=== PATIENT | female | born 1955 | race Caucasian/White ===

== ENCOUNTER → 2017-12-05 10:03 | Outpatient (CLI) | payer OTHER, SELFPAY ==
--- NOTE | 2017-12-05 | DI.MG.S_ITS ---
BILATERAL DIGITAL SCREENING MAMMOGRAM 3D/2D WITH CAD: 12/05/2017 Comparison is made to exams dated: 11/15/2016 mammogram, 11/12/2015 mammogram, and 10/24/2014 mammogram - [facility]. There are scattered fibroglandular elements in both breasts. Current study was also evaluated with a Computer Aided Detection (CAD) system. No significant masses, calcifications, or other findings are seen in either breast. There has been no significant interval change. IMPRESSION: NEGATIVE There is no mammographic evidence of malignancy. A 1 year screening mammogram is recommended. This exam was interpreted at Station ID: [id number]. NOTE: For mammograms, a report in lay terms will be sent to the patient. Approximately 15% of breast malignancies will not be visualized mammographically. In the management of a palpable breast mass, a negative mammogram must not discourage biopsy of a clinically suspicious lesion. Electronically Signed By: Chase olivier/meryl:12/05/2017 12:02:36 letter sent: Normal Exam ACR BI-RADS Category 1: Negative 3341F
== END ==
PROVIDERS: Visit Provider Internal Medicine
DX: Z12.31 Encounter for screening mammogram for malignant neoplasm of breast (principal)
CPT/HCPCS: 77063; 77067

== ENCOUNTER → 2018-01-23 10:15 | Outpatient (CLI) | payer OTHER, SELFPAY | PROVIDERS: PCP Internal Medicine; Visit Provider Internal Medicine | DX: M81.0 Age-related osteoporosis without current pathological fracture (principal); Z78.0 Asymptomatic menopausal state; Z82.62 Family history of osteoporosis | CPT/HCPCS: 77080 ==

== ENCOUNTER → 2018-02-28 16:13 | Outpatient (CLI) | payer OTHER, SELFPAY ==
[2018-02-28 17:50] LABS: Calcium 9.4 mg/dL (8.4-10.2)
[2018-03-02 14:01] LABS: Parathyroid Hormone Int 42 pg/mL (14-64)
== END ==
PROVIDERS: PCP Internal Medicine; Visit Provider Internal Medicine
DX: M81.0 Age-related osteoporosis without current pathological fracture (principal)
CPT/HCPCS: 36415; 82310; 83970

== ENCOUNTER → 2018-12-13 09:00 | Outpatient (CLI) | payer OTHER, SELFPAY ==
--- NOTE | 2018-12-13 | DI.MG.S_ITS ---
BILATERAL DIGITAL SCREENING MAMMOGRAM 3D/2D WITH CAD: 12/13/2018 CLINICAL: Routine screening. Comparison is made to exams dated: 12/05/2017 mammogram, 11/15/2016 mammogram, and 11/12/2015 mammogram - [facility]. There are scattered fibroglandular elements in both breasts. Current study was also evaluated with a Computer Aided Detection (CAD) system. No significant masses, calcifications, or other findings are seen in either breast. There has been no significant interval change. IMPRESSION: NEGATIVE There is no mammographic evidence of malignancy. A 1 year screening mammogram is recommended. This exam was interpreted at Station ID: [id number]. NOTE: For mammograms, a report in lay terms will be sent to the patient. Approximately 15% of breast malignancies will not be visualized mammographically. In the management of a palpable breast mass, a negative mammogram must not discourage biopsy of a clinically suspicious lesion. Electronically Signed By: Eliza tsai/meryl:12/13/2018 12:15:15 letter sent: Normal Exam ACR BI-RADS Category 1: Negative 3341F
== END ==
PROVIDERS: PCP Internal Medicine; Visit Provider Internal Medicine
DX: Z12.31 Encounter for screening mammogram for malignant neoplasm of breast (principal)
CPT/HCPCS: 77063; 77067

== ENCOUNTER → 2019-03-11 11:05 | Outpatient (CLI) | payer OTHER, SELFPAY ==
[2019-03-11 13:29] LABS: HEMOLYSIS < 15 (0-50)
[2019-03-11 13:33] LABS: Blood Urea Nitrogen 14 mg/dL (7-17); Calcium 9.9 mg/dL (8.4-10.2); Carbon Dioxide 29 mmol/L (22-32); Chloride 102 mmol/L (98-107); Cholesterol 237 mg/dL (140-199); Estimated Glomerular Filt Rate > 60.0 mL/min (>60); Glucose 84 mg/dL (80-110); HDL Cholesterol 87 mg/dL (40-60); LDL Cholesterol Calculated 134 mg/dL (<100); Potassium 5.2 mmol/L (3.4-5.1); Triglycerides 80 mg/dL (35-150)
[2019-03-11 13:57] LABS: TSH w/ Reflex to FT4 0.84 uIU/mL (0.47-4.68)
[2019-03-11 16:18] LABS: Sodium 140 mmol/L (137-145)
== END ==
PROVIDERS: PCP Internal Medicine; Visit Provider Physician Assistant
DX: E03.9 Hypothyroidism, unspecified (principal); E78.00 Pure hypercholesterolemia, unspecified
CPT/HCPCS: 36415; 80048; 80061; 84443

== ENCOUNTER → 2020-01-06 11:10 | Outpatient (CLI) | payer OTHER, SELFPAY ==
--- NOTE | 2020-01-06 11:18 | DI.MG.S_ITS ---
Patient Name: ZAIN WALSH date: 1955 Sex: F Attending Physician: Bishop Indications: Date: 01/06/2020 11:12 At the request of: JAKOB BLAKE Procedure: MM screening mammo BI BILATERAL DIGITAL SCREENING MAMMOGRAM 3D/2D WITH CAD: 01/06/2020 CLINICAL: Routine screening. Comparison is made to exams dated: 12/13/2018 mammogram, 12/05/2017 mammogram, and 11/15/2016 mammogram - [facility]. There are scattered fibroglandular elements in both breasts. Current study was also evaluated with a Computer Aided Detection (CAD) system. No significant masses, calcifications, or other findings are seen in either breast. There has been no significant interval change. IMPRESSION: NEGATIVE There is no mammographic evidence of malignancy. A 1 year screening mammogram is recommended. This exam was interpreted at Station ID: [id number]. NOTE: For mammograms, a report in lay terms will be sent to the patient. Approximately 15% of breast malignancies will not be visualized mammographically. In the management of a palpable breast mass, a negative mammogram must not discourage biopsy of a clinically suspicious lesion. Electronically Signed By: Ayad Salinas M.D., jr/meryl:01/06/2020 11:44:50 letter sent: Normal Exam ACR BI-RADS Category 1: Negative 3341F
== END ==
PROVIDERS: PCP Internal Medicine; Referring Provider Internal Medicine; Visit Provider Internal Medicine
DX: Z12.31 Encounter for screening mammogram for malignant neoplasm of breast (principal)
CPT/HCPCS: 77063; 77067

== ENCOUNTER → 2020-09-23 12:12 | Outpatient (CLI) | payer OTHER, SELFPAY ==
[2020-09-23 16:34] LABS: Vitamin D 25 Hydroxy (D3) 43.8 ng/mL (30.0-100.0)
== END ==
PROVIDERS: PCP Internal Medicine; Referring Provider Internal Medicine; Visit Provider Internal Medicine
DX: E03.9 Hypothyroidism, unspecified (principal); E78.00 Pure hypercholesterolemia, unspecified
CPT/HCPCS: 36415; 82306; 84443

== ENCOUNTER → 2020-10-12 13:13 | Outpatient (CLI) | payer OTHER, SELFPAY | PROVIDERS: PCP Internal Medicine; Referring Provider Internal Medicine; Visit Provider Internal Medicine | DX: M81.0 Age-related osteoporosis without current pathological fracture (principal); Z78.0 Asymptomatic menopausal state; E07.9 Disorder of thyroid, unspecified; Z82.62 Family history of osteoporosis | CPT/HCPCS: 77080 ==

== ENCOUNTER → 2021-01-07 10:04 | Outpatient (CLI) | payer OTHER, SELFPAY ==
--- NOTE | 2021-01-07 | DI.MG.S_ITS ---
BILATERAL DIGITAL SCREENING MAMMOGRAM 3D/2D WITH CAD: 01/07/2021 CLINICAL: Routine screening. Comparison is made to exams dated: 01/06/2020 mammogram, 12/13/2018 mammogram, and 12/05/2017 mammogram - [facility]. There are scattered fibroglandular elements in both breasts. Current study was also evaluated with a Computer Aided Detection (CAD) system. No significant masses, calcifications, or other findings are seen in either breast. There has been no significant interval change. IMPRESSION: NEGATIVE There is no mammographic evidence of malignancy. A 1 year screening mammogram is recommended. This exam was interpreted at Station ID: [id number]. NOTE: For mammograms, a report in lay terms will be sent to the patient. Approximately 15% of breast malignancies will not be visualized mammographically. In the management of a palpable breast mass, a negative mammogram must not discourage biopsy of a clinically suspicious lesion. Electronically Signed By: Ayad Salinas M.D., jr/meryl:01/07/2021 10:58:43 letter sent: Normal Exam ACR BI-RADS Category 1: Negative 3341F
== END ==
PROVIDERS: PCP Internal Medicine; Referring Provider Internal Medicine; Visit Provider Internal Medicine
DX: Z12.31 Encounter for screening mammogram for malignant neoplasm of breast (principal)
CPT/HCPCS: 77063; 77067

== ENCOUNTER → 2022-01-14 11:51 | Outpatient (CLI) | payer MEDICARE, OTHER, SELFPAY ==
[2022-01-14 12:54] LABS: COVID19 -Nasal RAPID Negative (Negative)
== END ==
PROVIDERS: PCP Internal Medicine; Visit Provider Surgery
DX: Z20.822 Contact with and (suspected) exposure to COVID-19 (principal); Z01.812 Encounter for preprocedural laboratory examination
CPT/HCPCS: 87635; C9803

== ENCOUNTER 2022-01-17 07:26 | Day surgery (SDC) | payer MEDICARE, OTHER, SELFPAY ==
--- NOTE | 2022-01-17 | PATH_ITS ---
[facility] Accession Number: [id number] . 01 Material submitted: . cecum - CECUM POLYPS X2 . 01 Diagnosis: Cecum Polyps x2: Portions of tubular adenoma x3. MRV 01/18/2022 1242 Local . 01 Electronically signed: . Precious Baez MD, Pathologist NPI- [id number] . 01 Gross description: . CECUM POLYPS X2: Received in formalin are 3 fragment(s) of cevallos, soft tissue measuring 0.1 x 0.1 x 0.1 cm to 0.4 x 0.3 x 0.2 cm submitted entirely in 1 cassette(s) /ZARINA 01/17/2022 1929 Local . 01 Pathologist provided ICD-10: Z86.010, K63.5 . 01 CPT . 505971 Specimen Comment: A courtesy copy of this report has been sent to [phone] Performed at: 01 [facility] [address] [place] [address], [place], [place] [id number] MD Lucien Sousa MD Phone: [phone]
[2022-01-17 07:47] VITALS: BP 103/61; PULSE 66; RESP 14; TEMP 36.4; O2SAT 99
[2022-01-17 07:49] VITALS: BMI 27.9
--- NOTE | 2022-01-17 08:03 | P.HP_ITS ---
History of Present Illness History of Present Illness Date Patient Seen: 01/17/22 Time Patient Seen: 08:03 Chief complaint: SDC Narrative: I reviewed the note from October of [address] Campoverde. No changes. Patient History Medical History Bone spur (~2005) Hypothyroidism Kidney stone Melanoma (~2004) Surgical History History of colonoscopy (~08/2015) History of lithotripsy (~1989) Family & Social History Social History: household members spouse Tobacco & Substance use: Smoking Status Never smoker alcohol intake frequency holiday/special occasion Substance Use Type does not use Meds Home Medications and Allergies Home Medications Medication Instructions Recorded Confirmed Type Chondroitin Sulfate/Glucosam 1 cap PO QDAY ##0 06/05/12 01/17/22 History (GLUCOSAMINE/CHONDROITIN) DIPHENHYDRAMINE HCL 25 mg PO HSP ##0 06/05/12 01/17/22 History (Diphenhydramine Hydrochloride) VITAMIN B COMPLEX (Vitamin B 1 tab PO QDAY ##0 06/05/12 01/17/22 History Complex) [Calcium With D] 1 tab PO BID ##0 06/05/12 01/17/22 History cholecalciferol (vitamin D3) 50 50 mcg PO DAILY ##0 06/05/12 01/17/22 History mcg (2,000 unit) capsule (Vitamin D3) LEVOTHYROXINE SODIUM 0.088 mg PO SEE INSTRUCTIONS ##45 11/30/12 01/17/22 Rx levothyroxine 100 mcg tablet 0.1 mg PO SEE INSTRUCTIONS ##45 11/30/12 01/17/22 R x Allergies Allergy/AdvReac Type Severity Reaction Status Date / Time codeine Allergy Intermediate VOMITING Verified 01/17/22 07:42 Sulfa (Sulfonamide Allergy Mild RASH Verified 01/17/22 07:42 Antibiotics) Review of Systems Review of Systems ROS: Yes All systems reviewed with the patient and are negative except as otherwise documented Exam Vital Signs (past 8 hours): - 01/17/22 07:47 Temperature 97.5 F L Pulse Rate 66 Respiratory Rate 14 Blood Pressure 103/61 Pulse Oximetry 99 Oxygen Delivery Method Room Air Oxygen Delivery Method Room Air Const General: cooperative HENMT Head: normal to inspection Eyes General: appearance normal, both eyes and all related structures Neck Neck: normal visual inspection Chest Chest: normal inspection of the chest Resp Effort & Inspection: normal respiratory effort Cardio Rate: regular rate GI Inspection: normal to inspection Skin General: no rashes or lesions noted Neuro General: patient alert and patient awake Extrem General: normal to inspection and no pedal edema Psych Appearance: grossly normal Assessment & Plan Assessment & Plan narrative: 66-year-old female with a personal history of colon polyps. Colonoscopy is pursued today. Time Spent With Patient Critical Care time: I spent a total of [] minutes of critical care time on this patient's care today; this time is exclusive of procedural time.
--- NOTE | 2022-01-17 08:04 | PM.PREOP ---
Pre-operative Note COVID-19 COVID-19 status: Negative Result date/Date tested (Pos, Neg/Pending): 01/14/22 Criteria for continued procedure: Possibility delay results in more complex future surgery or treatment Interval Note History & Physical reviewed/Exam performed by Physician: Yes Changes to H&P: No ASA Class (for procedural sedation): II
[2022-01-17] MEDS: SODIUM CHLORIDE 0.9% 1,000 ML 84 ML IV (08:05)
--- NOTE | 2022-01-17 09:06 | PM.OP.COLON ---
Operative Date/Time/Diagnoses Date of procedure: 01/17/22 Time of procedure: 09:06 Pre-op diagnosis: Family history of colon cancer personal history of colon polyps Post-op diagnosis: same Procedure & Clinicians Study performed: Colonoscopy with hot snare polypectomy and cold forceps polypectomy Same procedure as scheduled: Yes Indications: Family history of colon cancer personal history of colon polyps Surgeon: Lavelle Pandey Procedure Notes SCOAP/Timeout: Done Procedure in detail: After the risks and benefits were explained, written and verbal informed consent was obtained. The patient was brought into the procedure room and placed into the left lateral decubitus position. Please see nurse abseiling instructor notes for sedation details. Digital rectal examination was accomplished. The scope was introduced into the patient and advanced under direct visualization to the cecum as identified by the appendiceal orifice and ileocecal valve. The scope was slowly withdrawn to carefully examine the mucosa for any defects or lesions. Comprehensive imaging was accomplished throughout the rectum including the dentate line. The colon was decompressed, the scope was then removed from the patient who tolerated the procedure well. Pediatric colonoscope Bowel prep adequate Scope withdrawal time: 19 minutes Sedation minutes: 29 Complications: none Impression: Patient had some inflammation associated with the internal hemorrhoidal cushions. I initially considered a biopsy from this area but this would have almost certainly induced and unacceptable amount of bleeding. I suspect this is from some intermittent rectal prolapse. Internal hemorrhoids would be at grade 1-2. There was a diminutive polyp in the cecum removed with cold forceps. There was a slightly larger 6 mm sessile polyp in the cecum removed with hot snare. No additional pathology was appreciated throughout. Endoscopic diagnosis 1. Colon polyps 2. Inflamed internal hemorrhoids Post-procedure Plan for aftercare: 1. Await histopathology. 2. Repeat colonoscopy will likely be suggested for 5 years. 3. Fiber based bowel regimen for soft movements. Luco-inv-ljfkbci suppositories as needed for hemorrhoidal irritation. Disposition: PACU
[2022-01-17 09:10] VITALS: BP 96/51; PULSE 65; RESP 17; TEMP 36.2; O2SAT 98
[2022-01-17 09:15] VITALS: BP 109/65; PULSE 64; RESP 15; O2SAT 98
[2022-01-17 09:20] VITALS: BP 100/60; PULSE 59; RESP 19; O2SAT 98
[2022-01-17 09:25] VITALS: BP 109/67; PULSE 64; RESP 15; TEMP 36.3; O2SAT 99
[2022-01-17 09:29] VITALS: BP 104/67; PULSE 60; RESP 14; TEMP 36; O2SAT 97
== END 2022-01-17 09:41 | disposition home or self-care (01) ==
PROVIDERS: PCP Internal Medicine; Referring Provider Internal Medicine Gastroenterology; Visit Provider Internal Medicine Gastroenterology
PROC: 0DJD8ZZ Inspection of Lower Intestinal Tract, Via Natural or Artificial Opening Endoscopic (ICD-10-PCS; CPT 45378; principal; 2022-01-17 08:30)
DX: Z12.11 Encounter for screening for malignant neoplasm of colon (principal); Z86.010 Personal history of colon polyps; Z80.0 Family history of malignant neoplasm of digestive organs; K64.0 First degree hemorrhoids; D12.0 Benign neoplasm of cecum
CPT/HCPCS: 45385; 45380; J2704

== ENCOUNTER → 2022-02-08 09:58 | Outpatient (CLI) | payer MEDICARE, OTHER, SELFPAY ==
--- NOTE | 2022-02-08 | DI.MG.S_ITS ---
BILATERAL DIGITAL SCREENING MAMMOGRAM 3D/2D WITH CAD: 02/08/2022 CLINICAL: Routine screening. Comparison is made to exams dated: 01/07/2021 mammogram, 01/06/2020 mammogram, and 12/13/2018 mammogram - [facility]. There are scattered fibroglandular elements in both breasts. Current study was also evaluated with a Computer Aided Detection (CAD) system. No significant masses, calcifications, or other findings are seen in either breast. There has been no significant interval change. IMPRESSION: NEGATIVE There is no mammographic evidence of malignancy. A 1 year screening mammogram is recommended. Based on the Tyrer Cuzick model (a risk assessment model) the patient's lifetime risk is 5.8% and her 10 year risk is 2.8%. According to the ACR, ACS, and NCCN guidelines, an annual breast MRI exam along with mammogram is recommended if the patient's lifetime risk is 20% or greater. This exam was interpreted at Station ID: [id number]. NOTE: For mammograms, a report in lay terms will be sent to the patient. Approximately 15% of breast malignancies will not be visualized mammographically. In the management of a palpable breast mass, a negative mammogram must not discourage biopsy of a clinically suspicious lesion. Electronically Signed By: Jose buchanan/meryl:02/08/2022 14:14:36 letter sent: Normal Exam ACR BI-RADS Category 1: Negative 3341F
== END ==
PROVIDERS: PCP Internal Medicine; Referring Provider Internal Medicine; Visit Provider Internal Medicine
DX: Z12.31 Encounter for screening mammogram for malignant neoplasm of breast (principal)
CPT/HCPCS: 77063; 77067

== ENCOUNTER → 2023-03-07 11:06 | Outpatient (CLI) | payer MEDICARE, OTHER, SELFPAY ==
--- NOTE | 2023-03-07 11:10 | DI.MG.S_ITS ---
BILATERAL DIGITAL SCREENING MAMMOGRAM 3D/2D WITH CAD: 03/07/2023 CLINICAL: Routine screening. Comparison is made to exams dated: 02/08/2022 mammogram, 01/07/2021 mammogram, and 01/06/2020 mammogram - [facility]. There are scattered areas of fibroglandular density in both breasts (category b / 25%-50% glandular tissue). Current study was also evaluated with a Computer Aided Detection (CAD) system. No significant masses, calcifications, or other findings are seen in either breast. There has been no significant interval change. IMPRESSION: NEGATIVE There is no mammographic evidence of malignancy. A 1 year screening mammogram is recommended. Based on the Tyrer Cuzick model (a risk assessment model) the patient's lifetime risk is 5.6% and her 10 year risk is 2.8%. According to the ACR, ACS, and NCCN guidelines, an annual breast MRI exam along with mammogram is recommended if the patient's lifetime risk is 20% or greater. This exam was interpreted at Station ID: [id number]. NOTE: For mammograms, a report in lay terms will be sent to the patient. Approximately 15% of breast malignancies will not be visualized mammographically. In the management of a palpable breast mass, a negative mammogram must not discourage biopsy of a clinically suspicious lesion. Electronically Signed By: Kenna us/meryl:03/07/2023 16:19:30 letter sent: Normal Exam ACR BI-RADS Category 1: Negative 3341F
== END ==
PROVIDERS: PCP Internal Medicine; Referring Provider Internal Medicine; Visit Provider Internal Medicine
DX: Z12.31 Encounter for screening mammogram for malignant neoplasm of breast (principal)
CPT/HCPCS: 77063; 77067

== ENCOUNTER → 2024-01-17 11:21 | Outpatient (CLI) | payer MEDICARE, OTHER, SELFPAY ==
--- NOTE | 2024-01-17 11:22 | DI.RAD.S_ITS ---
PROCEDURE: XR DEXA AXIAL SKELETON INDICATIONS: OSTEOPOROSIS SCREENING COMPARISON: [facility], ANTHONY, XR DEXA AXIAL SKELETON, 10/12/2020, 13:26. FINDINGS: Lumbar Spine: Bone mineral density 0.714 g/cm2, T score -3.0, prior T-score -2.5. Left Hip: Bone mineral density show 0.768 g/cm2, T score -1.4. Left Femoral Neck: Bone mineral density is 0.608 g/cm2, T score -2.2. Right Hip: Bone mineral density is 0.795 g/cm2, T score -1.2. Right Femoral Neck: Bone mineral density is 0.636 g/cm2, T score -1.9. Fracture Risk Calculation (when applicable): 10-year fracture risk of a major osteoporotic fracture 10% and of a hip fracture 1.5%. (T score greater or equal to -1.0 to: NORMAL) (T score from -1.1 to -2.4: OSTEOPENIA) (T score less than or equal to -2.5: OSTEOPOROSIS) IMPRESSION: Osteoporosis lumbar spine. Follow-up guidelines as follows: Osteoporosis: Consider a repeat DEXA and Vertebral Fracture Assessment (VFA) exam in 2 years or sooner if medically necessary, to reassess this patient's status. Osteopenia: Consider a repeat DEXA in 2-3 years to reassess this patient's status, or if there is a new clinical indication. Normal: Consider a repeat DEXA in 5 years or sooner, or if there is a new clinical indication. All treatment decisions require clinical judgment and consideration of individual patient factors, including patient preferences, comorbidities, previous drug use, risk factors not captured in the FRAX model (e.g., frailty, falls, vitamin D deficiency, increased bone turnover, interval significant decline in bone density ) and possible under- or over-estimation of fracture risk by FRAX. In addition, the NOF Guide recommends that FDA-approved medical therapies be considered in postmenopausal women and men age >= 50 years with a: * Hip or vertebral (clinical or morphometric) fracture * T-score of <=-2.5 at the spine or hip * Ten-year fracture probability by FRAX of >= 3% for hip fracture or >=20% for major osteoporotic fracture. People with diagnosed cases of osteoporosis or at high risk for fracture should have regular bone mineral density tests. For patients eligible for Medicare, routine testing is allowed once every 2 years. The testing frequency can be increased to one year for patients who have rapidly progressing disease, those who are receiving or discontinuing medical therapy to restore bone mass, or have additional risk factors. Dictated by: Jimmy Barajas M.D. on 01/17/2024 at 18:03 Approved by: Jimmy Barajas M.D. on 01/17/2024 at 18:10
== END ==
PROVIDERS: PCP Registered Nurse; Referring Provider Registered Nurse; Visit Provider Registered Nurse
DX: M81.0 Age-related osteoporosis without current pathological fracture (principal); Z78.0 Asymptomatic menopausal state
CPT/HCPCS: 77080

== ENCOUNTER → 2024-03-19 11:05 | Outpatient (CLI) | payer MEDICARE, OTHER, SELFPAY ==
--- NOTE | 2024-03-19 11:06 | DI.MG.S_ITS ---
BILATERAL DIGITAL SCREENING MAMMOGRAM 3D/2D WITH CAD: 03/19/2024 CLINICAL: Routine screening. Comparison is made to exams dated: 03/07/2023 mammogram, 02/08/2022 mammogram, and 01/07/2021 mammogram - [facility]. There are scattered areas of fibroglandular density (category b / 25%-50% glandular tissue). Current study was also evaluated with a Computer Aided Detection (CAD) system. There are benign calcifications in both breasts. No significant masses, calcifications, or other findings are seen in either breast. There has been no significant interval change. IMPRESSION: BENIGN There is no mammographic evidence of malignancy. A 1 year screening mammogram is recommended. Based on the Tyrer Cuzick model (a risk assessment model) the patient's lifetime risk is 5.3% and her 10 year risk is 2.8%. According to the ACR, ACS, and NCCN guidelines, an annual breast MRI exam along with mammogram is recommended if the patient's lifetime risk is 20% or greater. This exam was interpreted at Station ID: [id number]. NOTE: For mammograms, a report in lay terms will be sent to the patient. Approximately 15% of breast malignancies will not be visualized mammographically. In the management of a palpable breast mass, a negative mammogram must not discourage biopsy of a clinically suspicious lesion. Electronically Signed By: Zack mack/meryl:03/19/2024 15:34:00 letter sent: Normal Exam ACR BI-RADS Category 2: Benign
== END ==
PROVIDERS: PCP Registered Nurse; Referring Provider Registered Nurse; Visit Provider Registered Nurse
DX: Z12.31 Encounter for screening mammogram for malignant neoplasm of breast (principal)
CPT/HCPCS: 77063; 77067